=== PATIENT | female | born 1980 | race Caucasian/White ===

== ENCOUNTER 2019-01-23 11:37 | Observation (INO) | payer BC ==
[2019-01-23] MEDS ORDERED: SODIUM CHLORIDE 0.9% 1,000 ML IV STA (12:19)
[2019-01-23] MEDS ORDERED: IPRATROPIUM-ALBUTEROL 3 ML NEB INHALATION STA (12:20)
--- NOTE | 2019-01-23 12:22 | ED ---
Chest Pain HPI <Nemesio Kennedy - Last Filed: 01/23/19 14:07> - General Source: patient, RN notes reviewed, old records reviewed Mode of arrival: ambulatory Limitations: no limitations <Aria Guerrero - Last Filed: 01/23/19 14:37> - General Chief Complaint: Chest Pain Stated Complaint: chest tightness Time Seen by Provider: 01/23/19 11:44 - History of Present Illness Initial Comments: 38-year-old female presents emergency Department today with complaints of dyspnea on exertion for the past few days. She reports it seems that symptoms started after she had an upper respiratory infection and complaining of cough and bronchitis. She seen her PCP just today and sent in for further evaluation. Patient states that she was told that she may have heart damage or CHF. Patient reports that she has pain radiating between her shoulder blades and she does have the pain. Patient states she has no resting chest pain at this time. Patient is a nonsmoker. She has history of upper lipedema. She denies any nausea or vomiting or arm pain. (Aria Guerrero) - Related Data Home Medications Medication Instructions Recorded Confirmed Atorvastatin Calcium [Lipitor] 40 mg PO DAILY 01/23/19 01/23/19 Venlafaxine HCl ER [Effexor XR] 150 mg PO DAILY 01/23/19 01/23/19 Allergies Allergy/AdvReac Type Severity Reaction Status Date / Time No Known Allergies Allergy Verified 01/23/19 11:55 Review of Systems ROS Other: All systems not noted in ROS Statement are negative. <Nemesio Kennedy - Last Filed: 01/23/19 14:07> ROS Other: All systems not noted in ROS Statement are negative. <Aria Guerrero - Last Filed: 01/23/19 14:37> ROS Statement: Those systems with pertinent positive or pertinent negative responses have been documented in the HPI. EKG Findings - EKG Comments: EKG Findings:: EKG performed at 1202 shows a sinus rhythm with sinus arrhythmia and complete rebound branch block. Where. EKG. Ventricular rate of 81 bpm. Verbal 140 ms. QS duration 106 most seconds. QT QTc is 394/457 ms. <Aria Guerrero - Last Filed: 01/23/19 14:37> Past Medical History Past Medical History: Hyperlipidemia, Hypertension History of Any Multi-Drug Resistant Organisms: None Reported Past Surgical History: Tubal Ligation Past Psychological History: Anxiety Smoking Status: Never smoker Past Alcohol Use History: None Reported Past Drug Use History: None Reported <Aria Guerrero - Last Filed: 01/23/19 14:37> General Exam Limitations: no limitations General appearance: alert, in no apparent distress Head exam: Present: atraumatic, normocephalic, normal inspection Eye exam: Present: normal appearance, PERRL, EOMI. Absent: scleral icterus, conjunctival injection, periorbital swelling ENT exam: Present: normal exam, mucous membranes moist Neck exam: Present: normal inspection. Absent: tenderness, meningismus, ly mphadenopathy Respiratory exam: Present: normal lung sounds bilaterally Cardiovascular Exam: Present: regular rate, normal rhythm, normal heart sounds. Absent: systolic murmur, diastolic murmur, rubs, gallop, clicks GI/Abdominal exam: Present: soft, normal bowel sounds. Absent: distended, tenderness, guarding, rebound, rigid Extremities exam: Present: normal inspection, full ROM, normal capillary refill. Absent: tenderness, pedal edema, joint swelling, calf tenderness Back exam: Present: normal inspection Neurological exam: Present: alert, oriented X3, CN II-XII intact Psychiatric exam: Present: normal affect, normal mood <Aria Guerrero - Last Filed: 01/23/19 14:37> - General Exam Comments Initial Comments: 38-year-old female. Alert and oriented. No distress. (Aria Guerrero) Course <Nemesio Kennedy - Last Filed: 01/23/19 14:07> Vital Signs 01/23/19 01/23/19 01/23/19 11:39 12:13 12:28 Temperature 97.4 F L Pulse Rate 80 78 73 Respiratory 22 16 Rate Blood Pressure 134/73 102/69 O2 Sat by Pulse 96 96 Oximetry 01/23/19 01/23/19 01/23/19 12:33 13:00 13:29 Temperature Pulse Rate 76 82 83 Respiratory 14 18 Rate Blood Pressure 93/59 112/67 O2 Sat by Pulse 98 98 Oximetry - Reevaluation(s) Reevaluation #1: 01/23/19 14:07 Case was discussed with practitioner Yolanda. Chart reviewed. Case also discussed with Dr. Magdaleno, who will admit covering for Dr. Mercedes. (Nemesio Kennedy) Chest Pain MDM <Aria Guerrero - Last Filed: 01/23/19 14:37> - MDM 2-year-old female presents for his room today with exertional chest pain. Symptoms started seemingly earlier this week with a cough. She reports she is unable to walk short distances without having chest pain. At this time EKG shows no significant changes. Initial troponin is negative. She was sent in by the EC for further evaluation. At this time Patient was given a treatment. This concerns her ossicle bronchitis. Patient states on reevaluation she continues to have some chest pain with walking to the bathroom. I discussed admission and PCP or urology follow-up. Patient agrees to treatment plan and agrees to admission. (Aria Guerrero) Disposition <Nemesio Kennedy - Last Filed: 01/23/19 14:07> Is patient prescribed a controlled substance at d/c from ED?: No Time of Disposition: 14:37 <Aria Guerrero - Last Filed: 01/23/19 14:37> Clinical Impression: Chest pain, Bronchitis Disposition: ADMITTED IP TO THIS HOSP Condition: Good Referrals: Daniella Mercedes MD [Primary Care Provider] - 1-2 days
[2019-01-23 12:28] LABS: Basophils # (A) 0.1 k/uL (0-0.2); Basophils % (A) 0 %; Eosinophils # (A) 0.3 k/uL (0-0.7); Eosinophils % (A) 2 %; HCT 43.4 % (34.0-46.0); HGB 14.5 gm/dL (11.4-16.0); Lymphocytes # (A) 3.4 k/uL (1.0-4.8); Lymphocytes % (A) 20 %; MCH 28.8 pg (25.0-35.0); MCHC 33.3 g/dL (31.0-37.0); MCV 86.5 fL (80.0-100.0); Mean Platelet Volume 6.6; Monocytes % (A) 6 %; Neutrophils # (A) 12.2 k/uL (1.3-7.7); Neutrophils % (A) 71 %; Platelet Count 436 k/uL (150-450); RBC 5.02 m/uL (3.80-5.40); RDW 12.8 % (11.5-15.5); WBC 17.2 k/uL (3.8-10.6)
[2019-01-23 12:42] LABS: ALT 94 U/L (9-52); AST 52 U/L (14-36); Albumin 4.7 g/dL (3.5-5.0); Alkaline Phosphatase 106 U/L (38-126); Anion Gap 10 mmol/L; Blood Urea Nitrogen 8 mg/dL (7-17); Calcium 9.9 mg/dL (8.4-10.2); Carbon Dioxide 27 mmol/L (22-30); Chloride 101 mmol/L (98-107); Glucose 90 mg/dL (74-99); Magnesium 1.8 mg/dL (1.6-2.3); Potassium 4.2 mmol/L (3.5-5.1); Sodium 138 mmol/L (137-145); Total Bilirubin 1.2 mg/dL (0.2-1.3); Total Protein 7.8 g/dL (6.3-8.2)
[2019-01-23 12:45] LABS: INR 0.9 (<1.2); Partial Thromboplastin Time 22.2 sec (22.0-30.0); Prothrombin Time 9.6 sec (9.0-12.0)
--- NOTE | 2019-01-23 13:37 | XR ---
EXAMINATION TYPE: XR chest 2V DATE OF EXAM: 01/23/2019 COMPARISON: None INDICATION: Chest pain TECHNIQUE: Frontal and lateral views of the chest are obtained. FINDINGS: The heart size is mildly prominent. The pulmonary vasculature is normal. The lungs are clear. IMPRESSION: 1. Mild cardiomegaly. 2. No acute pulmonary process.
[2019-01-23] MEDS ORDERED: NITROGLYCERIN SL TABS 0.4 MG TAB SUBLINGUAL PRN (14:38)
[2019-01-23] MEDS ORDERED: ASPIRIN 81 MG PO STA (15:15)
[2019-01-23 15:41] VITALS: BMI 41.3
[2019-01-23] MEDS ORDERED: IPRATROPIUM-ALBUTEROL 3 ML NEB INHALATION PRN (18:10)
[2019-01-23] MEDS: AZITHROMYCIN 500 MG TAB PO SCH (18:42)
[2019-01-23] MEDS: FAMOTIDINE 20 MG TAB PO SCH (21:41)
--- NOTE | 2019-01-23 22:33 | P.HPIM ---
History of Present Illness H&P Date: 01/23/19 Chief Complaint: Chest tightness and shortness of breath Patient is a 38-year-old female with a known history of psoriasis and psoriatic arthritis, hyperlipidemia, GERD and depression as well as chronic low back pain came to ER with the complaints of shortness of breath and chest tightness. Patient has been having cough with whitish to yellow sputum production since last Saturday and has been having worsening shortness of breath and exertional dyspnea. She was seen by her primary care physician today and was complaining of chest tightness. Patient does have chest pain/tightness mainly in the left retrosternal and radiating between her shoulder blades which worsens with coughing. No commerce of fever or chills. Patient does have leukocytosis. Denied any nausea vomiting or abdominal pain and diarrhea. Denied any recent travel. Patient was given DuoNeb's. Continue treatment in the ER which seemed to improve her symptoms. Chest x-ray showed mild cardiomegaly. No acute process. EKG showed normal sinus rhythm with sinus arrhythmia AST and ALT 52 and 94 WBC 17.2 BNP 27 Troponin 2 negative Review of Systems Constitutional: Patient denies any fever or chills . No generalized weakness or weight loss. Abdomen: Patient denied nausea vomiting and diarrhea and abdominal pain. Cardiovascular: Patient denies any chest pain or short of breath no palpitations. Respiratory: Patient does have cough with sputum production and shortness of breath Neurologic: Patient denied any numbness or tingling headache. Musculoskeletal: Patient denies any complaints of joint swelling or deformity. Skin: Negative Psychiatric: Negative Endocrine: No heat or cold intolerance. No recent weight gain. Genitourinary: No dysuria or hematuria. All other 14 point ROS negative except the above Past Medical History Past Medical History: GERD/Reflux, Hyperlipidemia, Skin Disorder Additional Past Medical History / Comment(s): Pt states she either had psoriatic arthritis of RA, psoriasis, bronchitis, chronic low back pain. History of Any Multi-Drug Resistant Organisms: None Reported Past Surgical History: Tubal Ligation, Uterine Ablation Additional Past Surgical History / Comment(s): D&C, hysteroscopy with novasure ablation, wisdom teeth extractions. Past Anesthesia/Blood Transfusion Reactions: No Reported Reaction, Motion Sickness Smoking Status: Never smoker - Past Family History Father Family Medical History: No Reported History Additional Family Medical History / Comment(s): Father is healthy Mother Family Medical History: Cancer Additional Family Medical History / Comment(s): Mother of lung cancer. She was a smoker. Medications and Allergies Home Medications Medication Instructions Recorded Confirmed Type Atorvastatin Calcium [Lipitor] 40 mg PO DAILY 01/23/19 01/23/19 History Venlafaxine HCl ER [Effexor XR] 150 mg PO DAILY 01/23/19 01/23/19 History Allergies Allergy/AdvReac Type Severity Reaction Status Date / Time No Known Allergies Allergy Verified 01/23/19 11:55 Physical Exam Vitals: Vital Signs Temp Pulse Pulse Resp BP BP Pulse Ox 01/23/19 15:44 98.2 F 76 18 116/65 95 01/23/19 15:00 90 16 107/78 98 01/23/19 13:29 83 18 112/67 98 01/23/19 13:00 82 14 93/59 98 01/23/19 12:33 76 01/23/19 12:28 73 01/23/19 12:13 78 16 102/69 96 01/23/19 11:39 97.4 F L 80 22 134/73 96 Intake and Output 01/23/19 01/23/19 01/23/19 06:59 14:59 22:59 Other: Weight 105.687 kg PHYSICAL EXAMINATION: Patient is lying in the bed comfortably, no acute distress, awake alert and oriented.. HEENT: Normocephalic. Neck is supple. Pupils reactive. Nostrils clear. Oral cavity is moist. Ears reveal no drainage. Neck reveals no JVD, carotid bruits, or thyromegaly. CHEST EXAMINATION: Trachea is central. Symmetrical expansion. Lung talavera clear to auscultation and percussion. CARDIAC: Normal S1, S2 with no gallops. No murmurs ABDOMEN: Soft. Bowel sounds normal. No organomegaly. No abdominal bruits. Extremities: reveal no edema. No clubbing or cyanosis Neurologically awake, alert, oriented x3 with well-coordinated movements. No focal deficits noted Skin: No rash or skin lesions. Psychiatric: Coperative. Nonsuicidal Musculoskeletal: No joint swelling or deformity. Normal range of motion. Results CBC & Chem 7: 01/23/19 12:05 01/23/19 12:05 Labs: Abnormal Lab Results - Last 24 Hours (Table) 01/23/19 01/23/19 Range/Units 12:05 12:05 WBC 17.2 H (3.8-10.6) k/uL Neutrophils # 12.2 H (1.3-7.7) k/uL AST 52 H (14-36) U/L ALT 94 H (9-52) U/L Thrombosis Risk Factor Assmnt - DVT/VTE Prophylaxis DVT/VTE Prophylaxis: Pharmacologic Prophylaxis ordered - Choose All That Apply Any of the Below Risk Factors Present?: Yes Each Factor Represents 1 point: Obesity (BMI >25) Other Risk Factors: No Other congenital or acquired thrombophilia - If yes, enter type in comment: No Thrombosis Risk Factor Assessment Total Risk Factor Score: 1 Thrombosis Risk Factor Assessment Level: Low Risk Assessment and Plan Assessment: Shortness of breath with chest tightness occurring due to acute tracheobronchitis with bronchospasm. Will rule out ACS Acute tracheobronchitis Leukocytosis 17.3 Hyperlipidemia GERD History of psoriasis and psoriatic arthritis Chronic low back pain Morbid obesity BMI 41.3 Depression/anxiety DVT prophylaxis Plan: Patient will be continued on telemetry monitoring. Initial EKG and troponin 2 negative. Patient will be continued on DuoNeb treatments and was started on antibiotics in the form of azithromycin. Cardiology was consulted for further evaluation. Monitor closely. Time with Patient: Greater than 30
[2019-01-23] MEDS: HEPARIN SODIUM,PORCINE 5,000 UNIT/ML 1 ML VIAL SQ SCH (23:54)
[2019-01-24 03:30] LABS: Cholesterol 173 mg/dL (<200); HDL Cholesterol 47 mg/dL (40-60); LDL Cholesterol,Calculated 98 mg/dL (0-99); Triglycerides 139 mg/dL (<150)
[2019-01-24 04:31] VITALS: TEMP 98.1
[2019-01-24] MEDS: HEPARIN SODIUM,PORCINE 5,000 UNIT/ML 1 ML VIAL SQ SCH ×2 (08:15→16:15)
[2019-01-24] MEDS: AZITHROMYCIN 500 MG TAB PO SCH (08:15)
[2019-01-24] MEDS: FAMOTIDINE 20 MG TAB PO SCH (08:15)
--- NOTE | 2019-01-24 08:46 | CONS ---
CONSULTATION CHIEF COMPLAINT: Chest pain. Saira is a 38-year-old lady with history of dyslipidemia who presented to hospital with cough and stuffy nose for the last one week and had an episode of chest pain yesterday. It is sharp, precordial, mild intensity and related to exertion and associated with diaphoresis without definite radiation to neck, arm or back. The chest pain seems musculoskeletal and could be related to cough. She had an EKG on this admission that revealed sinus rhythm with incomplete right bundle branch block. She has had 3 sets of troponins at the time of my evaluation that are all within normal limits. A chest x-ray showed mild cardiomegaly without any acute process. The patient's chest discomfort seems atypical, probably noncardiac. I will obtain a 2D echo and if this is normal, discharge her home and arrange outpatient followup. PAST MEDICAL HISTORY: Significant for dyslipidemia. CURRENT MEDICATIONS: Include Effexor 150 mg daily, Lipitor 40 mg daily. ALLERGIES: There are no known drug allergies. FAMILY HISTORY: Negative for premature coronary artery disease. SOCIAL HISTORY: Negative for smoking, EtOH abuse, or drug abuse. REVIEW OF SYSTEMS: HEENT is significant for upper respiratory type symptoms. Significant for stuffed nose. Respiratory significant for cough. CARDIAC: Negative for chest pain. The rest of the review of systems is unremarkable. EXAM: Patient appears comfortable at rest. Vital signs are stable. There is no jugular venous distention. Carotid upstroke is normal. There is no bruit. Chest exam reveals good air entry bilaterally. Heart exam reveals first and second heart sounds. No gallop. No murmur. No rub. Abdomen is soft, nontender. Exam of extremities did not reveal edema. Peripheral pulses are felt. LABS: Show that 3 sets of cardiac enzymes are negative. White cell count is elevated at 17. Platelet count is normal. ASSESSMENT: 1. Atypical chest pain. 2. Dyslipidemia. PLAN: Patient's chest pain seems atypical and is probably related to upper respiratory tract infection. The patient is being treated with antibiotics. Myocardial infarction is ruled out. I will obtain a 2D echo and hopefully patient can be discharged home tomorrow and outpatient followup arranged with us. MMODL / IJN: [id number] /
[2019-01-24] MEDS ORDERED: ATORVASTATIN 40 MG TAB PO SCH (09:00)
[2019-01-24] MEDS ORDERED: VENLAFAXINE HCL ER 150 MG CAP PO SCH (09:00)
[2019-01-24] MEDS ORDERED: ASPIRIN 325 MG TAB PO SCH (09:00)
[2019-01-24 12:26] VITALS: BP 134/75; PULSE 82; RESP 18
--- NOTE | 2019-01-24 13:10 | ECHOF ---
Referral Reason: MEASUREMENTS -------- HEIGHT: 160.0 cm WEIGHT: 105.7 kg BP: IVSd: 1.4 cm (0.6 - 1.1) LVIDd: 3.8 cm (3.9 - 5.3) LVPWd: 1.8 cm (0.6 - 1.1) IVSs: 2.3 cm LVIDs: 2.4 cm LVPWs: 2.0 cm Ao Diam: 3.2 cm (2.0 - 3.7) AV Cusp: 2.0 cm (1.5 - 2.6) LA Diam: 3.8 cm (2.7 - 3.8) MV EXCURSION: 17.007 mm (> 18.000) MV EF SLOPE: 111 mm/s (70 - 150) EPSS: 0.4 cm MV E Julien: 0.98 m/s MV DecT: 205 ms MV A Julien: 0.67 m/s MV E/A Ratio: 1.46 RAP: 5.00 mmHg RVSP: 16.85 mmHg FINDINGS -------- Sinus rhythm. This was a technically good study. The left ventricular size is normal. There is moderate concentric left ventricular hypertrophy. O verall left ventricular systolic function is normal with, an EF between 55 - 60 %. The right ventricle is normal in size. The left atrial size is normal. The right atrial size is normal. Interatrial and interventricular septum intact. The aortic valve is trileaflet and appears structurally normal. There is trace mitral regurgitation. Trace tricuspid regurgitation present. The right ventricular systolic pressure, as measured by Dopp ler, is 16.85mmHg. There is no pulmonic regurgitation present. The aortic root size is normal. Normal inferior vena cava with normal inspiratory collapse consistent with estimated right atrial pre ssure of 5 mmHg. There is no pericardial effusion. CONCLUSIONS -------- 1. Sinus rhythm. 2. This was a technically good study. 3. The left ventricular size is normal. 4. There is moderate concentric left ventricular hypertrophy. 5. Overall left ventricular systolic function is normal with, an EF between 55 - 60 %. 6. The right ventricle is normal in size. 7. The left atrial size is normal. 8. The right atrial size is normal. 9. Interatrial and interventricular septum intact. 10. The aortic valve is trileaflet and appears structurally normal. 11. There is trace mitral regurgitation. 12. Trace tricuspid regurgitation present. 13. The right ventricular systolic pressure, as measured by Doppler, is 16.85mmHg. 14. There is no pulmonic regurgitation present. 15. The aortic root size is normal. 16. Normal inferior vena cava with normal inspiratory collapse consistent with estimated right atrial pressure of 5 mmHg. 17. There is no pericardial effusion. RUG DESIGNER: Jane Gatica RDCS
[2019-01-24 15:58] LABS: Basophils # (A) 0.1 k/uL (0-0.2); Basophils % (A) 1 %; Eosinophils # (A) 0.3 k/uL (0-0.7); Eosinophils % (A) 2 %; HCT 39.8 % (34.0-46.0); HGB 13.1 gm/dL (11.4-16.0); Lymphocytes # (A) 3.4 k/uL (1.0-4.8); Lymphocytes % (A) 23 %; MCH 28.9 pg (25.0-35.0); MCV 87.7 fL (80.0-100.0); Mean Platelet Volume 6.8; Monocytes # (A) 0.7 k/uL (0-1.0); Monocytes % (A) 5 %; Neutrophils # (A) 9.7 k/uL (1.3-7.7); Neutrophils % (A) 67 %; Platelet Count 391 k/uL (150-450); RBC 4.53 m/uL (3.80-5.40); RDW 12.8 % (11.5-15.5); WBC 14.4 k/uL (3.8-10.6)
[2019-01-24 16:09] LABS: ALT 79 U/L (9-52); AST 42 U/L (14-36); Albumin 4.1 g/dL (3.5-5.0); Alkaline Phosphatase 102 U/L (38-126); Anion Gap 10 mmol/L; Blood Urea Nitrogen 9 mg/dL (7-17); Calcium 9.3 mg/dL (8.4-10.2); Carbon Dioxide 25 mmol/L (22-30); Chloride 103 mmol/L (98-107); Glucose 126 mg/dL (74-99); Potassium 4.1 mmol/L (3.5-5.1); Sodium 138 mmol/L (137-145); Total Protein 6.7 g/dL (6.3-8.2)
== END 2019-01-24 16:14 | disposition home or self-care (01) ==
LOC: EC 11:37 → 1SOBS 14:07
PROVIDERS: ADMIT Internal Medicine; ATTEND Internal Medicine
DX: J20.9 Acute bronchitis, unspecified (principal); I10 Essential (primary) hypertension; E78.5 Hyperlipidemia, unspecified; F41.9 Anxiety disorder, unspecified; M54.5 Low back pain; I45.10 Unspecified right bundle-branch block; G89.29 Other chronic pain; F32.9 Major depressive disorder, single episode, unspecified; E66.01 Morbid (severe) obesity due to excess calories; K21.9 Gastro-esophageal reflux disease without esophagitis; L40.50 Arthropathic psoriasis, unspecified; Z79.899 Other long term (current) drug therapy; Z68.41 Body mass index [BMI] 40.0-44.9, adult; Z98.51 Tubal ligation status; Z80.1 Family history of malignant neoplasm of trachea, bronchus and lung
CPT/HCPCS: 96360; 96361; 99285; 36415; 94640; 93005; 93306; 83880; 80061; 80053 ×2; 83735; 84484 ×2; 85025 ×2; 85610; 85730; 71046; G0378 ×2

== ENCOUNTER 2024-07-29 15:11 | Emergency (ER) | payer BC ==
[2024-07-29 15:17] LABS: Glucose,Whole Blood 139 mg/dL (70-110)
[2024-07-29 15:19] VITALS: TEMP 98.2
[2024-07-29] MEDS: SODIUM CHLORIDE 0.9% 1,000 ML IV STA (15:58)
--- NOTE | 2024-07-29 15:58 | ED ---
Neuro HPI - General Chief Complaint: Weakness Stated Complaint: facial numbness Time Seen by Provider: 07/29/24 15:27 Source: patient, RN notes reviewed, old records reviewed Mode of arrival: EMS Limitations: no limitations - History of Present Illness Is the patient presenting with stroke symptoms?: Yes -: hour(s) Initial Comments: This is a 43-year-old female who presents with left-sided facial numbness tingling and facial droop left-sided facial droop which should believes began 30 minutes prior to arrival Location: left face History of same: No Place: home Severity: severe Improves With: none Worsens With: none On Anticoagulants: No - Related Data Home Medications: Home Medications Medication Instructions Recorded Confirmed Cariprazine HCl [Vraylar] 1.5 mg PO DAILY 07/29/24 07/29/24 Ondansetron [Zofran] 4 mg PO DAILY PRN 07/29/24 07/29/24 Rosuvastatin Calcium 10 mg PO DAILY 07/29/24 07/29/24 Tirzepatide [Mounjaro] 5 mg SQ WE 07/29/24 07/29/24 Venlafaxine HCl [Effexor XR] 225 mg PO DAILY 07/29/24 07/29/24 Previous Rx's Medication Instructions Recorded predniSONE 50 mg PO DAILY #7 tab 07/29/24 valACYclovir HCL [Valacyclovir] 1,000 mg PO TID #21 tab 07/29/24 Allergies/Adverse Reactions: Allergies Allergy/AdvReac Type Severity Reaction Status Date / Time No Known Allergies Allergy Verified 07/29/24 17:06 Review of Systems ROS Statement: Those systems with pertinent positive or pertinent negative responses have been documented in the HPI. ROS Other: All systems not noted in ROS Statement are negative. General Exam - General Exam Comments Initial Comments: Patient is showing forehead paralysis unable to raise left eyebrow flat left s lamont of her forehead Limitations: no limitations General appearance: alert, in no apparent distress Head exam: Present: atraumatic, normocephalic, normal inspection Eye exam: Present: normal appearance, PERRL, EOMI. Absent: scleral icterus, conjunctival injection, periorbital swelling ENT exam: Present: normal exam, mucous membranes moist Neck exam: Present: normal inspection. Absent: tenderness, meningismus, lymphadenopathy Respiratory exam: Present: normal lung sounds bilaterally. Absent: respiratory distress, wheezes, rales, rhonchi, stridor Cardiovascular Exam: Present: regular rate, normal rhythm, normal heart sounds. Absent: systolic murmur, diastolic murmur, rubs, gallop, clicks GI/Abdominal exam: Present: soft, normal bowel sounds. Absent: distended, te nderness, guarding, rebound, rigid Extremities exam: Present: normal inspection, full ROM, normal capillary refill. Absent: tenderness, pedal edema, joint swelling, calf tenderness Back exam: Present: normal inspection Neurological exam: Present: alert, oriented X3, CN II-XII intact Psychiatric exam: Present: normal affect, normal mood Skin exam: Present: warm, dry, intact, normal color. Absent: rash Stroke MDM - Lab Data Result diagrams: 07/29/24 15:36 07/29/24 15:36 Lab Results 07/29/24 07/29/24 07/29/24 Range/Units 15:16 15:36 15:36 WBC 13.0 H (3.8-10.6) k/uL RBC 5.06 (3.80-5.40) m/uL Hgb 15.1 (11.4-16.0) gm/dL Hct 43.8 (34.0-46.0) % MCV 86.7 (80.0-100.0) fL MCH 29.8 (25.0-35.0) pg MCHC 34.3 (31.0-37.0) g/dL RDW 13.0 (11.5-15.5) % Plt Count 435 (150-450) k/uL MPV 7.7 Neutrophils % 60 % Lymphocytes % 30 % Monocytes % 7 % Eosinophils % 2 % Basophils % 0 % Neutrophils # 7.8 H (1.3-7.7) k/uL Lymphocytes # 3.8 (1.0-4.8) k/uL Monocytes # 0.9 (0-1.0) k/uL Eosinophils # 0.2 (0-0.7) k/uL Basophils # 0.1 (0-0.2) k/uL PT 9.8 L (10.0-12.5) sec INR 0.9 (<1.2) APTT 23.2 (22.0-30.0) sec Sodium (137-145) mmol/L Potassium (3.5-5.1) mmol/L Chloride (98-107) mmol/L Carbon Dioxide (22-30) mmol/L Anion Gap mmol/L BUN (7-17) mg/dL Creatinine (0.52-1.04) mg/dL Est GFR (CKD-EPI)AfAm (>60 ml/min/1.73 sqM) Est GFR (CKD-EPI)NonAf (>60 ml/min/1.73 sqM) Glucose (74-99) mg/dL POC Glucose (mg/dL) 139 H (70-110) mg/dL POC Glu Awning Hanger Supervisor ID [place] [employer] Calcium (8.4-10.2) mg/dL Total Bilirubin (0.2-1.3) mg/dL AST (14-36) U/L ALT (4-34) U/L Alkaline Phosphatase (38-126) U/L Creatine Kinase (30-135) U/L Troponin I (0.000-0.034) ng/mL Total Protein (6.3-8.2) g/dL Albumin (3.5-5.0) g/dL 07/29/24 07/29/24 Range/Units 15:36 15:36 WBC (3.8-10.6) k/uL RBC (3.80-5.40) m/uL Hgb (11.4-16.0) gm/dL Hct (34.0-46.0) % MCV (80.0-100.0) fL MCH (25.0-35.0) pg MCHC (31.0-37.0) g/dL RDW (11.5-15.5) % Plt Count (150-450) k/uL MPV Neutrophils % % Lymphocytes % % Monocytes % % Eosinophils % % Basophils % % Neutrophils # (1.3-7.7) k/uL Lymphocytes # (1.0-4.8) k/uL Monocytes # (0-1.0) k/uL Eosinophils # (0-0.7) k/uL Basophils # (0-0.2) k/uL PT (10.0-12.5) sec INR (<1.2) APTT (22.0-30.0) sec Sodium 136 L (137-145) mmol/L Potassium 4.9 (3.5-5.1) mmol/L Chloride 100 (98-107) mmol/L Carbon Dioxide 26 (22-30) mmol/L Anion Gap 10 mmol/L BUN 8 (7-17) mg/dL Creatinine 0.67 (0.52-1.04) mg/dL Est GFR (CKD-EPI)AfAm >90 (>60 ml/min/1.73 sqM) Est GFR (CKD-EPI)NonAf >90 (>60 ml/min/1.73 sqM) Glucose 139 H (74-99) mg/dL POC Glucose (mg/dL) (70-110) mg/dL POC Glu Awning Hanger Supervisor ID Calcium 9.9 (8.4-10.2) mg/dL Total Bilirubin 1.0 (0.2-1.3) mg/dL AST 30 (14-36) U/L ALT 46 H (4-34) U/L Alkaline Phosphatase 83 (38-126) U/L Creatine Kinase 47 (30-135) U/L Troponin I <0.012 (0.000-0.034) ng/mL Total Protein 7.7 (6.3-8.2) g/dL Albumin 4.8 (3.5-5.0) g/dL - NIH Stroke Scale 1a. Level of Consciousness: (0) alert 1b. LOC Questions: (0) answers correctly 1c. LOC Commands: (0) performs tasks correctly 2. Best Gaze: (0) normal 3. Visual: (0) no visual loss 4. Facial Palsy: (2) partial paralysis 5a. Motor Arm Left: (0) no drift 5b. Motor Arm Right: (0) no drift 6a. Motor Leg Left: (0) no drift 6b. Motor Leg Right: (0) no drift 7. Limb Ataxia: (0) absent 8. Sensory: (0) normal 9. Best Language: (0) no aphasia 10. Dysarthria: (0) normal 11. Extinction/Inattention: (0) no abnormality - Thrombolytic Inclusion/Exclusion Thrombolytic Exclusion Criteria: Onset of Symptoms Unknown - Medical Decision Making 43 female found to have Roper's palsy here in the ER okay for discharge home - Radiology Data Radiology results: report reviewed (CT brain CTA head neck negative for acute disease), image reviewed - EKG Data -: EKG Interpreted by Me (EKG sinus 89 CT 127 QRS 115 QTc 417) Past Medical History Past Medical History: Diabetes Mellitus, GERD/Reflux, Hyperlipidemia, Skin Disorder Additional Past Medical History / Comment(s): Pt states she either had psoriatic arthritis of RA, psoriasis, bronchitis, chronic low back pain. History of Any Multi-Drug Resistant Organisms: None Reported Past Surgical History: Tubal Ligation, Uterine Ablation Additional Past Surgical History / Comment(s): D&C, hysteroscopy with novasure ablation, wisdom teeth extractions. Past Anesthesia/Blood Transfusion Reactions: No Reported Reaction, Motion Sickness Past Psychological History: Anxiety Smoking Status: Never smoker Past Alcohol Use History: Occasional Past Drug Use History: None Reported - Past Family History Father Family Medical History: No Reported History Additional Family Medical History / Comment(s): Father is healthy Mother Family Medical History: Cancer Additional Family Medical History / Comment(s): Mother of lung cancer. She was a smoker. Course Vital Signs 07/29/24 07/29/24 07/29/24 15:16 15:58 16:19 Temperature 98.2 F Pulse Rate 73 72 72 Respiratory 18 18 18 Rate Blood Pressure 128/83 129/78 133/90 O2 Sat by Pulse 98 98 98 Oximetry 07/29/24 07/29/24 17:58 19:11 Temperature Pulse Rate 86 73 Respiratory 18 16 Rate Blood Pressure 136/91 110/97 O2 Sat by Pulse 96 98 Oximetry - Reevaluation(s) Reevaluation #1: 07/29/24 16:26 Medical records reviewed Reevaluation #2: 07/29/24 18:44 Patient symptoms unchanged Reevaluation #3: 07/29/24 18:44 Patient informed of results and questions answered Reevaluation #4: Was pt. sent in by a medical professional or institution (, PA, PILE HEADER, urgent care, hospital, or alf...) When possible be specific @ -no Did you speak to anyone other than the patient for history (EMS, parent, family, police, friend...)? What history was obtained from this source @ -no Did you review nursing and triage notes (agree or disagree)? Why? @ -agree Are old charts reviewed (outside hosp., previous admission, EMS record, old EKG, old radiological studies, urgent care reports/EKG's, alf records)? Report findings @ -yes Differential Diagnosis (chest pain, altered mental status, abdominal pain women, abdominal pain men, vaginal bleeding, weakness, fever, dyspnea, syncope, headache, dizziness, GI bleed, back pain, seizure, CVA, palpatations, mental health, musculoskeletal)? @ -prior EKG interpreted by me (3pts min.). @ -yes X-rays interpreted by me (1pt min.). @ -yes negative for acute disease CT interpreted by me (1pt min.). @ -yes negative for acute disease U/S interpreted by me (1pt. min.). @ -no What testing was considered but not performed or refused? (CT, X-rays, U/S, labs)? Why? @ -none What meds were considered but not given or refused? Why? @ -none Did you discuss the management of the patient with other professionals (professionals i.e. , PA, PILE HEADER, lab, RT, psych nurse, social media content manager, car tester, teacher, campus security officer, high risk case manager)? Give summary @ -no Was smoking cessation discussed for >3mins.? @ -no Was critical care preformed (if so, how long)? @ -no Were there social determinants of health that impacted care today? How? (Homelessness, low income, unemployed, alcoholism, drug addiction, transportation, low edu. Level, literacy, decrease access to med. care, skilled nursing, rehab)? @ -none Was there de-escalation of care discussed even if they declined (Discuss DNR or withdrawal of care, Hospice)? DNR status @ -no What co-morbidities impacted this encounter? (DM, HTN, Smoking, COPD, CAD, Cancer, CVA, ARF, Chemo, Hep., AIDS, mental health diagnosis, sleep apnea, morbid obesity)? @ -none Was patient admitted / discharged? Hospital course, mention meds given and route, prescriptions, significant lab abnormalities, going to OR and other pertinent info. @ - 43 female found to have Roper's palsy here in the ER okay for discharge home Discharge Undiagnosed new problem with uncertain prognosis? @ -no Drug Therapy requiring intensive monitoring for toxicity (Heparin, Nitro, Insulin, Cardizem)? @ -no Were any procedures done? @ -no Diagnosis/symptom? @ -Roper's palsy Acute, or Chronic, or Acute on Chronic? @ -Acute Uncomplicated (without systemic symptoms) or Complicated (systemic symptoms)? @ -Complicated Side effects of treatment? @ -no Exacerbation, Progression, or Severe Exacerbation? @ -exacerbation Poses a threat to life or bodily function? How? (Chest pain, [place], VA, pneumonia, PE, COPD, DKA, ARF, appy, cholecystitis, CVA, Diverticulitis, Homicidal, Suicidal, threat to staff... and all critical care pts) @ -yes with CVA symptoms 08/05/24 17:06 Reevaluation #5: Differential CVA Ischemic stroke, hemorrhagic stroke, brain tumor, atypical migraine, Wernicke's encephalopathy, seizure, multiple sclerosis, meningitis, encephalitis, hypoglycemia, Guillain-Pearce, electrolytes disturbance, myasthenia gravis.... This is not meant to be an all-inclusive list Disposition Clinical Impression: Roper's palsy Disposition: HOME SELF-CARE Condition: Good Instructions (If sedation given, give patient instructions): Roper Palsy (ED) Prescriptions: predniSONE 50 mg PO DAILY #7 tab valACYclovir HCL [Valacyclovir] 1,000 mg PO TID #21 tab Is patient prescribed a controlled substance at d/c from ED?: No Referrals: Julio Potter MD [Primary Care Provider] - 1-2 days
[2024-07-29 16:01] LABS: Basophils # (A) 0.1 k/uL (0-0.2); Basophils % (A) 0 %; Eosinophils # (A) 0.2 k/uL (0-0.7); Eosinophils % (A) 2 %; HCT 43.8 % (34.0-46.0); HGB 15.1 gm/dL (11.4-16.0); Lymphocytes # (A) 3.8 k/uL (1.0-4.8); Lymphocytes % (A) 30 %; MCH 29.8 pg (25.0-35.0); MCHC 34.3 g/dL (31.0-37.0); MCV 86.7 fL (80.0-100.0); Mean Platelet Volume 7.7; Monocytes # (A) 0.9 k/uL (0-1.0); Monocytes % (A) 7 %; Neutrophils # (A) 7.8 k/uL (1.3-7.7); Neutrophils % (A) 60 %; Platelet Count 435 k/uL (150-450); RBC 5.06 m/uL (3.80-5.40)
--- NOTE | 2024-07-29 16:02 | XR ---
EXAMINATION TYPE: XR chest 2V DATE OF EXAM: 07/29/2024 3:47 PM CLINICAL INDICATION: Female, 43 years old with history of altered mental status; H COMPARISON: None TECHNIQUE: XR chest 2V Frontal view of the chest. FINDINGS: Lungs/Pleura: There is no evidence of pleural effusion, focal consolidation, or pneumothorax. Pulmonary vascularity: Unremarkable. Heart/mediastinum: Cardiomediastinal silhouette is unremarkable. Musculoskeletal: No acute osseous pathology. Other findings: None IMPRESSION: No acute cardiopulmonary disease/process. [facility], , 07/29/2024 4:00 PM
[2024-07-29 16:10] LABS: INR 0.9 (<1.2); Partial Thromboplastin Time 23.2 sec (22.0-30.0); Prothrombin Time 9.8 sec (10.0-12.5)
[2024-07-29 16:14] LABS: ALT 46 U/L (4-34); AST 30 U/L (14-36); African American GFR (CKD) >90 (>60 ml/min/1.73 sqM); Albumin 4.8 g/dL (3.5-5.0); Alkaline Phosphatase 83 U/L (38-126); Anion Gap 10 mmol/L; Blood Urea Nitrogen 8 mg/dL (7-17); Calcium 9.9 mg/dL (8.4-10.2); Carbon Dioxide 26 mmol/L (22-30); Chloride 100 mmol/L (98-107); Creatine Kinase 47 U/L (30-135); Glucose 139 mg/dL (74-99); Non-African American GFR(CKD) >90 (>60 ml/min/1.73 sqM); Potassium 4.9 mmol/L (3.5-5.1); Sodium 136 mmol/L (137-145); Total Protein 7.7 g/dL (6.3-8.2)
--- NOTE | 2024-07-29 17:43 | CT ---
EXAMINATION TYPE: CT brain wo con CT DLP: 1158.6 mGycm, Automated exposure control for dose reduction was used. DATE OF EXAM: 07/29/2024 5:28 PM COMPARISON: None. CLINICAL INDICATION: Female, 43 years old with history of Neuro deficit, acute, stroke suspected, lef t side facial droop and numbness TECHNIQUE: Brain: Axial CT images of the brain were obtained with coronal and sagittal reformats created and rev iewed. Contrast used: None. Oral contrast used: None. FINDINGS: Brain: Extra-axial spaces: No abnormal extra-axial fluid collections. Falx lipoma anteriorly. Ventricular system: Within normal limits Cerebral parenchyma: No acute intraparenchymal hemorrhage or mass effect. The palm-white junction is well differentiated. Cerebellum: Unremarkable. Mass effect: No evidence of midline shift. Intracranial vasculature: unremarkable Soft tissues: Normal. Calvarium/osseous structures: No depressed skull fracture. Paranasal sinuses and mastoid air cells: Mild scattered paranasal sinus disease. Visualized orbits: Orbital contents are intact. IMPRESSION: No acute intracranial process. [facility], , 07/29/2024 5:41 PM
--- NOTE | 2024-07-29 18:08 | CT ---
EXAMINATION TYPE: CT angio head neck CT DLP: 476 mGycm, Automated exposure control for dose reduction was used. DATE OF EXAM: 07/29/2024 5:28 PM COMPARISON: CT head same day. CLINICAL INDICATION: Female, 43 years old with history of Neuro deficit, acute, stroke suspected; PHH , left side facial droop and numbness TECHNIQUE: Axially acquired helical CT angiogram of the head and neck was obtained with contrast. Axi al images are supplemented with 3D reconstructions and MIP images which were post-processed at an in dependent workstation. NASCET criteria used. Contrast used:65ml mL of Isovue 370 with IV Contrast, Oral contrast used: None. FINDINGS: CTA HEAD: No evidence of acute intracranial hemorrhage, mass effect, or midline shift. The ventricles, sulci, a nd cisterns are unremarkable. Vertebral arteries: The vertebral arteries are patent. Vertebral artery dominance: Left Basilar artery: The basilar artery is intact. The basilar artery bifurcation is normal. Internal Carotid arteries: The cervical, petrous, cavernous and supraclinoid segments are normal. KARINA: Patent with no evidence of aneurysm. ACOM: Present without evidence of aneurysm. MCA: Patent with no evidence of aneurysm. SPIKE MACHINE FEEDER: origin left Patent with no evidence of aneurysm. PCOM: Hypoplastic right. Dural sinuses: Patent. CTA NECK: Right Carotid System: The common carotid artery and external carotid artery are patent. The carotid bifurcation demonstrate s no evidence of hemodynamically significant stenosis. The remaining portions of the internal carotid artery demonstrate normal size without significant narrowing. Left Carotid System: The common carotid artery and external carotid artery are patent. The carotid bifurcation demonstrate s no evidence of hemodynamically significant stenosis. The remaining portions of the internal carotid artery demonstrate normal size without significant narrowing. Vertebral arteries are patent without evidence hemodynamically significant stenosis. There is a three-vessel aortic arch. The origins of the great vessels are patent. No evidence of hemo dynamically significant stenosis. IMPRESSION: 1. No evidence of dissection of the cervical internal carotid arteries or vertebral arteries or any e vidence of significant stenosis at the carotid bifurcations. 2. No evidence of intracranial high-grade stenosis or intracranial aneurysm. [facility], Workstation: [id number], 07/29/2024 6:06 PM
[2024-07-29] MEDS ORDERED: ACYCLOVIR SODIUM 700 MG in SODIUM CHLORIDE 0.9% 100 ML IV ONE (18:38)
[2024-07-29] MEDS: valACYclovir HCL 1,000 MG TABLET PO STA (18:51)
[2024-07-29] MEDS: predniSONE 20 MG TAB PO STA (18:52)
[2024-07-29] MEDS: DEXAMETHASONE SOD PHOSPHATE 10 MG/ML 1 ML VIAL IVP STA (18:56)
[2024-07-29 19:13] VITALS: BP 110/97; PULSE 73; RESP 16
== END 2024-07-29 19:17 | disposition home or self-care (01) ==
LOC: EC 15:11
DX: G51.0 Bell's palsy (principal)
CPT/HCPCS: 36415; 93005; 80053; 82550; 84484; 85025; 85610; 85730; 71046; 70496; 70450; 70498; 99285; 96374; 96361; J1100; J7512; Q9967